=== PATIENT | female | born 1935 | race Caucasian/White ===

== ENCOUNTER 2016-03-23 15:02 | Emergency (ER) | payer MEDICARE ==
[~2016-03-23] VITALS: Ht 165.1 cm; Wt 75.0 kg
[2016-03-23 15:02] VITALS: BP 128/62; PULSE 87; RESP 16; TEMP 97.6; O2SAT 98
[~2016-03-23 15:02] MED LIST: 1-ME1LIQ PO; ACET325S8 PO; DONE10TA14 PO; FURO20 PO; HYDR-2768 PO; LORA0.5T PO; MELA3TAB19 PO; POTA-243 PO; RISP.25 PO; RISP0.5T2 PO; SERT-132 PO
--- NOTE | 2016-03-23 15:56 | PD ---
HPI Chief Complaint: Fall Time Seen by Provider: 15:56 Travel History International Travel<30 days: No Contact w/Intl Traveler<30days: No Traveled to known affect area: No History of Present Illness HPI 80-year-old [place] female with history of Alzheimer's, is brought in by ambulance status post fall. Initially the patient was complaining of right wrist and hip pain. It is reported that the patient hit her head and had no loss of consciousness. Patient came in on a board with cervical spine immobilization. Upon my exam the patient complains of no pain, no headache, no neck pain, no hip pain, or wrist or arm pain. The patient reportedly has a history of frequent falls. Patient has no known drug allergies. PFSH Past Medical History Anxiety: Yes Depression: Yes Cardiovascular Problems: Yes Dementia: Yes Hypertension: Yes Tetanus Vaccination: Unknown Social History Alcohol Use: No Tobacco Use: No Substance Use: No Allergies-Medications (Allergen,Severity, Reaction): Coded Allergies: No Known Allergies (Unverified , 02/20/15) Reported Meds & Prescriptions Reported Meds & Active Scripts Active Reported Donepezil 10 Mg Tab 10 Mg PO HS Melatonin 5 Mg Cap 5 Mg PO HS Risperidone 0.5 Mg Tab 0.5 Mg PO Q12HR Probiotic (Lactobacillus Acidophilus) 1 Cap Cap 2 Cap PO DAILY Lorazepam 0.5 Mg Tab 0.5 Mg PO BID PRN Sertraline (Sertraline HCl) 100 Mg Tab 150 Mg PO DAILY Lisinopril 5 Mg Tab 5 Mg PO DAILY Klor-Con 10 (Potassium Chloride) 10 Meq Tab 10 Meq PO DAILY Hydrochlorothiazide 12.5 Mg Cap 12.5 Mg PO DAILY Lasix (Furosemide) 20 Mg Tab 20 Mg PO DAILY Amlodipine (Amlodipine Besylate) 10 Mg Tab 10 Mg PO DAILY Review of Systems ROS Limitations: Poor Historian (patient has Alzheimer's.) Except as stated in HPI: all other systems reviewed are Neg General / Constitutional: No: Fever Eyes: No: Visual changes HENT: No: Headaches Cardiovascular: No: Chest Pain or Discomfort Respiratory: No: Shortness of Breath Gastrointestinal: No: Abdominal Pain Genitourinary: No: Dysuria Musculoskeletal: No: Pain Skin: No Rash Neurologic: No: Weakness Psychiatric: No: Depression Endocrine: No: Polydipsia Hematologic/Lymphatic: No: Easy Bruising Physical Exam Exam Limitations: Poor Historian Narrative GENERAL: Patient is pleasant and in no acute distress. SKIN: Warm and dry. Normal color. Normal turgor. No signs of trauma whatsoever. HEAD: Atraumatic. Normocephalic. EYES: Pupils equal and round. No scleral icterus. No injection or drainage. ENT: No nasal bleeding or discharge. Mucous membranes pink and moist. No dental injury. Pharynx is normal. Airway is patent. NECK: Trachea midline. No JVD. No bony tenderness or step-off. Patient has full range of motion without tenderness. Patient's C-spine is cleared for per nexus criteria. CARDIOVASCULAR: Regular rate and rhythm. No murmurs gallops or rubs appreciated. RESPIRATORY: No accessory muscle use. Clear to auscultation. Breath sounds equal bilaterally. GASTROINTESTINAL: Abdomen soft, non-tender, nondistended. Hepatic and splenic margins not palpable. MUSCULOSKELETAL: Extremities without clubbing, cyanosis, or edema. No obvious deformities. Patient has full movement of all extremities without increased pain or weakness. NEUROLOGICAL: Awake and alert. No obvious cranial nerve deficits. Motor grossly within normal limits. Five out of 5 muscle strength in the arms and legs. Normal speech. PSYCHIATRIC: Appropriate mood and affect; insight and judgment normal. Data Data Last Documented VS Vital Signs Date Time Temp Pulse Resp B/P Pulse Ox O2 Delivery O2 Flow Rate FiO2 03/23/16 16:52 97 Room Air 03/23/16 15:02 97.6 87 16 128/62 Orders Electrocardiogram (03/23/16 15:56) Ct Brain W/O Iv Contrast(Rout) (03/23/16 15:56) Ecg Monitoring (03/23/16 15:56) Oximetry (03/23/16 15:56) Sodium Chloride 0.9% Flush (Ns Flush) (03/23/16 16:00) [facility] Medical Decision Making Medical Screen Exam Complete: Yes Emergency Medical Condition: Yes Differential Diagnosis Possible syncope. Fall. Alzheimer's disease. Head injury. Possible stroke. Narrative Course Patient is felt to be medically stable at time of exam. EKG is ordered as well as CT scan of the head. Patient is placed on front desk associate. EKG is unremarkable for acute findings. CT scan is negative per radiologist. Patient is noted to be able to ambulate without difficulty here in the emergency department. Patient is felt stable to return to her nursing facility. Diagnosis Primary Impression: Fall Qualified Code: W19.XXXA - Fall, initial encounter Referrals: Primary Care Physician Patient Instructions: Fall Prevention for Older Adults (ED), General Instructions Additional Instructions: EKG is unremarkable for acute findings. CT scan is negative per radiologist. Patient is noted to be able to ambulate without difficulty here in the emergency department. Patient is felt stable to return to her nursing facility. Med/Other Pt SpecificInfo: No Change to Meds, No Meds Exist/No RX given Disposition: 01 DISCHARGE HOME Condition: Stable Bj Mauricio Mar 23, 2016 15:56
[2016-03-23] MEDS ORDERED: SODIUM CHLORIDE 0.9% FLUSH 5 ML FLUSH IVF PRN (16:00)
[2016-03-23] MEDS ORDERED: DONE10TA7 PO (16:05)
[2016-03-23] MEDS ORDERED: LACTCAP8 PO (16:05)
[2016-03-23] MEDS ORDERED: LORA-373 PO (16:05)
[2016-03-23] MEDS ORDERED: LISI-519 PO (16:05)
[2016-03-23] MEDS ORDERED: RISP0.5T2 PO (16:05)
[2016-03-23] MEDS ORDERED: MELA5CAP2 PO (16:05)
[2016-03-23] MEDS ORDERED: POTA-243 PO (16:05)
[2016-03-23] MEDS ORDERED: AMLO10TA2 PO (16:05)
[2016-03-23] MEDS ORDERED: HYDR12.57 PO (16:05)
[2016-03-23] MEDS ORDERED: SERT-129 PO (16:05)
[2016-03-23] MEDS ORDERED: FURO1TAB62 PO (16:05)
[2016-03-23 16:52] VITALS: O2SAT 97
--- NOTE | 2016-03-23 17:00 | RADRPT ---
EXAM DATE/TIME: 03/23/2016 16:27 [facility] COMPARISON: CT BRAIN W/O CONTRAST, January 04, 2016, 8:53. INDICATIONS : Dizziness. RADIATION DOSE: 56.35 CTDIvol (mGy) MEDICAL HISTORY : Stroke. Hypertension. Dementia. SURGICAL HISTORY : None. ENCOUNTER: Initial ACUITY: 1 day PAIN SCALE: Non-responsive LOCATION: cranial TECHNIQUE: Multiple contiguous axial images were obtained of the head. Using automated exposure control and adj ustment of the mA and/or kV according to patient size, radiation dose was kept as low as reasonably a chievable to obtain optimal diagnostic quality images. FINDINGS: Mild cerebral atrophy is noted. Mild periventricular and subcortical white matter small-vessel ische av changes are also noted. There is no acute infarct, acute hemorrhage, mass effect or extra-axial fluid collections. Nasal septal deviation to the right is noted. CONCLUSION: 1. Mild cerebral atrophy and periventricular/subcortical white matter small-vessel ischemic changes bilaterally. 2. No acute infarct, acute hemorrhage, mass effect or extra-axial fluid collections. 3. Nasal septal deviation to the right. Lj Barrett MD on March 23, 2016 at 16:52 Board Certified Radiologist. This report was verified electronically.
--- NOTE | 2016-03-23 21:30 | EKG ---
Date Performed: 03/23/2016 Time Performed: 16:04:14 PTAGE: 80 years EKG: Sinus rhythm LOW QRS VOLTAGE IN PRECORDIAL LEADS NONSPECIFIC T-WAVE ABNORMALITY ABNORMAL ECG NO PREVIOUS TRACING DOCTOR: Oleg Reeves Interpretating Date/Time 03/23/2016 21:28:24
== END 2016-03-23 23:39 | disposition home or self-care (01) ==
LOC: NEPE 15:02
DX: S09.90XA Unspecified injury of head, initial encounter (principal); M25.551 Pain in right hip; M25.531 Pain in right wrist; R94.31 Abnormal electrocardiogram [ECG] [EKG]; I10 Essential (primary) hypertension; G30.9 Alzheimer's disease, unspecified; F02.80 Dementia in other diseases classified elsewhere, unspecified severity, without behavioral disturbance, psychotic disturbance, mood disturbance, and anxiety
CPT/HCPCS: 70450; 93005

== ENCOUNTER 2016-03-28 19:37 | Emergency (ER) | payer MEDICARE ==
[~2016-03-28] VITALS: Ht 160 cm; Wt 81.8 kg
[~2016-03-28 19:37] MED LIST changes: -1-ME1LIQ PO; -ACET325S8 PO; +AMLO10TA2 PO; -DONE10TA14 PO; +DONE10TA7 PO; +FURO1TAB62 PO; -FURO20 PO; -HYDR-2768 PO; +HYDR12.57 PO; +LACTCAP8 PO; +LISI-519 PO; +LORA-373 PO; -LORA0.5T PO; -MELA3TAB19 PO; +MELA5CAP2 PO; -RISP.25 PO; +SERT-129 PO; -SERT-132 PO
[2016-03-28 19:45] VITALS: BP 147/72; PULSE 75; RESP 16; TEMP 97.9; O2SAT 97
[2016-03-28] MEDS ORDERED: ACETAMINOPHEN 325 MG TAB PO ONE (20:00)
[2016-03-28 20:27] LABS: BASOPHIL # 0.1 TH/MM3 (0-0.2); BASOPHIL % 0.8 % (0.0-2.0); EOSINOPHIL # 0.2 TH/MM3 (0-0.4); EOSINOPHIL % 2.9 % (0.0-4.0); HEMATOCRIT 37.2 % (35.0-46.0); HEMO FLAGS DIFF FINAL; LYMPH % 20.9 % (9.0-44.0); LYMPHOCYTE # 1.6 TH/MM3 (1.0-4.8); MEAN CELL VOLUME 89.2 FL (80.0-100.0); MEAN CORPUSCULAR HEMOGLOBIN 29.9 PG (27.0-34.0); MEAN CORPUSCULAR HGB CONC 33.5 % (32.0-36.0); MONO % 9.1 % (0.0-8.0); NEUT % 66.3 % (16.0-70.0); PLATELET COUNT 203 TH/MM3 (150-450); RED BLOOD COUNT 4.18 MIL/MM3 (4.00-5.30); RED CELL DISTRIBUTION WIDTH 15.6 % (11.6-17.2); WHITE BLOOD COUNT 7.5 TH/MM3 (4.0-11.0)
--- NOTE | 2016-03-28 20:44 | RADRPT ---
EXAM DATE/TIME: 03/28/2016 20:18 [facility] COMPARISON: CT BRAIN W/O CONTRAST, March 23, 2016, 16:27. INDICATIONS : Trauma; fall. RADIATION DOSE: 41.08 CTDIvol (mGy) MEDICAL HISTORY : Dementia. Cerebrovascular disease. Cardiovascular diseaseHypertension SURGICAL HISTORY : None. ENCOUNTER: Initial ACUITY: 1 day PAIN SCALE: Non-responsive LOCATION: cranial TECHNIQUE: Multiple contiguous axial images were obtained of the head. Using automated exposure control and adj ustment of the mA and/or kV according to patient size, radiation dose was kept as low as reasonably a chievable to obtain optimal diagnostic quality images. FINDINGS: CEREBRUM: The ventricles and cortical sulci are mildly widened. No evidence of midline shift, mass lesion, hem orrhage or acute infarction. No extra-axial fluid collections are seen. POSTERIOR FOSSA: The cerebellum and brainstem are intact. The 4th ventricle is midline. The cerebellopontine angle i s unremarkable. EXTRACRANIAL: The visualized portion of the orbits is intact. There is left frontal scalp soft tissue swelling. SKULL: The calvaria is intact. No evidence of skull fracture. CONCLUSION: 1. No acute intracranial abnormality. 2. Age related atrophy. 3. Left frontal scalp swelling. Atif Santos MD on March 28, 2016 at 20:40 Board Certified Radiologist. This report was verified electronically.
--- NOTE | 2016-03-28 20:59 | RADRPT ---
EXAM DATE/TIME: 03/28/2016 20:12 [facility] COMPARISON: No previous studies available for comparison. INDICATIONS : Right shoulder pain post fall. MEDICAL HISTORY : None. SURGICAL HISTORY : None. ENCOUNTER: Initial ACUITY: 1 day PAIN SCORE: 7/10 LOCATION: Right shoulder FINDINGS: No fracture is seen. The glenohumeral joint and acromioclavicular joint are normally aligned. There is hypertrophic change at the inferior medial aspect of the humeral head consistent with degenerativ e change at the glenohumeral joint. CONCLUSION: No acute abnormality is seen. There is degenerative spurring at the inferior medial h umeral head. Atif Santos MD on March 28, 2016 at 20:40 Board Certified Radiologist. This report was verified electronically.
--- NOTE | 2016-03-28 21:06 | RADRPT ---
EXAM DATE/TIME: 03/28/2016 20:18 [facility] COMPARISON: CT CERVICAL SPINE W/O CONTRAST, January 04, 2016, 8:53. INDICATIONS : Trauma; fall. RADIATION DOSE: 19.64 CTDIvol (mGy) MEDICAL HISTORY : Dementia. Cerebrovascular disease. Cardiovascular diseaseHypertension SURGICAL HISTORY : None. ENCOUNTER: Initial ACUITY: 1 day PAIN SCALE: Non-responsive LOCATION: neck TECHNIQUE: Volumetric scanning of the cervical spine was performed. Multiplanar reconstructions i n the sagittal, coronal and oblique axial planes were performed. Using automated exposure control a nd adjustment of the mA and/or kV according to patient size, radiation dose was kept as low as reason ably achievable to obtain optimal diagnostic quality images. FINDINGS: VERTEBRAE: Normal vertebral body height. ALIGNMENT: There is some mild reversal of the normal C-spine lordosis. This alignment abnormalit y was present on the prior exam and is unchanged. C1-C2: The C1 ring is intact. There is some hypertrophic change at the articulation between the lat eral masses of C1 and C2. C2-C3: The disc spaces are grossly intact. There is no spinal stenosis. There is facet hypertrophy being worse on the right. The neural foramina are normal. C3-C4: Disc space is narrowed. There is posterior osteophytic ridging causing a mild impression on t he thecal sac. There is uncovertebral and mild facet hypertrophy. The neural foramina are grossly no rmal. C4-C5: Disc space is narrowed. There is mild posterior osteophytic ridging. There is uncovertebral hypertrophy. There is mild facet hypertrophy. The neural foramina are grossly normal. C5-C6: Disc space is narrowed. There is mild osteophytic ridging. Significant stenosis is not appre ciated. There is uncovertebral hypertrophy being worse on the left. This causes a mild impression on the left neural foramina. The facet joints are grossly intact. C6-C7: Disc space is narrowed. There is mild posterior osteophytic ridging. There is uncovertebral hypertrophy being worse on the left. The neural foramina are grossly normal. The facet joints are g rossly intact. C7-T1: The bony spinal canal is normal in size. No evidence of disc bulge or herniation. The neura l foramina are bilaterally patent. CONCLUSION: No acute bony abnormality is seen. There is chronic degenerative change as described above. Atif Santos MD on March 28, 2016 at 20:44 Board Certified Radiologist. This report was verified electronically.
[2016-03-28 21:19] LABS: ALKALINE PHOSPHATASE 84 U/L (45-117); ALT (GPT) 18 U/L (10-53); ANION GAP 9 MEQ/L (5-15); AST (GOT) 19 U/L (15-37); BICARBONATE 30.3 MEQ/L (21.0-32.0); BLOOD UREA NITROGEN 19 MG/DL (7-18); CHLORIDE 101 MEQ/L (98-107); GLOMERULAR FILTRATION RATE 51 ML/MIN (>89); SODIUM (NA) 140 MEQ/L (136-145); TOTAL BILIRUBIN ADULT 0.4 MG/DL (0.2-1.0)
[2016-03-28 21:30] LABS: POTASSIUM 2.9 MEQ/L (3.5-5.1)
[2016-03-28 21:54] VITALS: BP 120/59; PULSE 65; RESP 14; O2SAT 98
[2016-03-28] MEDS ORDERED: POTASSIUM CHLORIDE 20 MEQ PWD PACKET PO ONE (23:15)
--- NOTE | 2016-03-28 23:54 | RADRPT ---
EXAM DATE/TIME: 03/28/2016 23:29 [facility] COMPARISON: No previous studies available for comparison. INDICATIONS : Fall. MEDICAL HISTORY : None. SURGICAL HISTORY : None. ENCOUNTER: Initial ACUITY: 1 day PAIN SCORE: 0/10 LOCATION: Bilateral pelvis FINDINGS: A single frontal view of the pelvis demonstrates no evidence of fracture. The bony pelvic ring is in tact. Bony mineralization is normal. The soft tissues are intact. Degenerative changes present at t he lumbosacral junction. CONCLUSION: 1. There is no evidence of acute fracture. Elder Mcclendon MD on March 28, 2016 at 23:52 Board Certified Radiologist. This report was verified electronically.
--- NOTE | 2016-03-29 00:38 | PD ---
HPI Chief Complaint: Fall Time Seen by Provider: 19:52 Travel History International Travel<30 days: No Contact w/Intl Traveler<30days: No Traveled to known affect area: No History of Present Illness HPI Patient is an 80-year-old female who is brought in by EMS [facility]. She has large hematoma to the left side of her head. Per EMS, staff heard her fall and went to her immediately, they said she was fully awake and alert. It does not appear that she passed out. She complains of pain to her right shoulder. She has otherwise been feeling normally. She has dementia and is a poor historian. PFSH Past Medical History Anxiety: Yes Depression: Yes Cardiovascular Problems: Yes High Cholesterol: Yes Dementia: Yes Hypertension: Yes Medical other: Yes (dementia, BLE Lymphedema) Tetanus Vaccination: Unknown ?: Not Social History Alcohol Use: No Tobacco Use: No Substance Use: No Allergies-Medications (Allergen,Severity, Reaction): Coded Allergies: No Known Allergies (Unverified , 02/20/15) Reported Meds & Prescriptions Reported Meds & Active Scripts Active Reported Donepezil 10 Mg Tab 10 Mg PO HS Melatonin 5 Mg Cap 5 Mg PO HS Risperidone 0.5 Mg Tab 0.5 Mg PO Q12HR Probiotic (Lactobacillus Acidophilus) 1 Cap Cap 2 Cap PO DAILY Lorazepam 0.5 Mg Tab 0.5 Mg PO BID PRN Sertraline (Sertraline HCl) 100 Mg Tab 150 Mg PO DAILY Lisinopril 5 Mg Tab 5 Mg PO DAILY Klor-Con 10 (Potassium Chloride) 10 Meq Tab 10 Meq PO DAILY Hydrochlorothiazide 12.5 Mg Cap 12.5 Mg PO DAILY Lasix (Furosemide) 20 Mg Tab 20 Mg PO DAILY Amlodipine (Amlodipine Besylate) 10 Mg Tab 10 Mg PO DAILY Review of Systems ROS Limitations: Clinical Condition, Poor Historian General / Constitutional: No: Fever, Chills HENT: Positive: Headaches Cardiovascular: No: Chest Pain or Discomfort Respiratory: No: Shortness of Breath Gastrointestinal: No: Nausea, Vomiting Musculoskeletal: Positive: Arthralgias Skin: No Change in Pigmentation Neurologic: No: Syncope Physical Exam Narrative GENERAL: Awake and alert, in no acute distress. SKIN: Warm and dry. Large hematoma to the left side of forehead. HEAD: Atraumatic. Normocephalic. EYES: Pupils equal and round. No scleral icterus. ENT: Mucous membranes pink and moist. NECK: Trachea midline. No JVD. No cervical spine tenderness. CARDIOVASCULAR: Regular rate and rhythm. No murmur appreciated. RESPIRATORY: No accessory muscle use. Clear to auscultation. Breath sounds equal bilaterally. GASTROINTESTINAL: Abdomen soft, non-tender, nondistended. MUSCULOSKELETAL: No obvious deformities. No clubbing. No cyanosis. No edema. Mild tenderness to palpation of the right shoulder. She is able to range the shoulder fully. Tenderness to palpation of the left hip. NEUROLOGICAL: Awake and alert. No obvious cranial nerve deficits. Motor grossly within normal limits. Normal speech. PSYCHIATRIC: Appropriate mood and affect; insight and judgment normal. Data Data Last Documented VS Vital Signs Date Time Temp Pulse Resp B/P Pulse Ox O2 Delivery O2 Flow Rate FiO2 03/29/16 06:00 67 14 136/60 96 Room Air 03/28/16 19:[address] Brain W/O Iv Contrast(Rout) (03/28/16 ) Ct Cerv Spine W/O Contrast (03/28/16 ) Complete Blood Count With Diff (03/28/16 19:52) Comprehensive Metabolic Panel (03/28/16 19:52) Troponin I (03/28/16 19:52) Electrocardiogram (03/28/16 ) Shoulder, Complete (>2vws) (03/28/16 ) Acetaminophen (Tylenol) (03/28/16 20:00) Potassium Chloride Powder (Kcl Powder) (03/28/16 23:15) Pelvis, Ap Only (Routine) (03/28/16 ) Labs Laboratory Tests Test 03/28/16 20:00 White Blood Count 7.5 TH/MM3 Red Blood Count 4.18 MIL/MM3 Hemoglobin 12.5 GM/DL Hematocrit 37.2 % Mean Corpuscular Volume 89.2 FL Mean Corpuscular Hemoglobin 29.9 PG Mean Corpuscular Hemoglobin 33.5 % Concent Red Cell Distribution Width 15.6 % Platelet Count 203 TH/MM3 Mean Platelet Volume 8.5 FL Neutrophils (%) (Auto) 66.3 % Lymphocytes (%) (Auto) 20.9 % Monocytes (%) (Auto) 9.1 % Eosinophils (%) (Auto) 2.9 % Basophils (%) (Auto) 0.8 % Neutrophils # (Auto) 5.0 TH/MM3 Lymphocytes # (Auto) 1.6 TH/MM3 Monocytes # (Auto) 0.7 TH/MM3 Eosinophils # (Auto) 0.2 TH/MM3 Basophils # (Auto) 0.1 TH/MM3 CBC Comment DIFF FINAL Differential Comment Sodium Level 140 MEQ/L Potassium Level 2.9 MEQ/L Chloride Level 101 MEQ/L Carbon Dioxide Level 30.3 MEQ/L Anion Gap 9 MEQ/L Blood Urea Nitrogen 19 MG/DL Creatinine 1.03 MG/DL Estimat Glomerular Filtration 51 ML/MIN Rate Random Glucose 99 MG/DL Calcium Level 8.9 MG/DL Total Bilirubin 0.4 MG/DL Aspartate Amino Transf 19 U/L (AST/SGOT) Alanine Aminotransferase 18 U/L (ALT/SGPT) Alkaline Phosphatase 84 U/L Troponin I LESS THAN 0.02 NG/ML Total Protein 7.5 GM/DL Albumin 3.9 GM/DL [facility] Medical Decision Making Medical Screen Exam Complete: Yes Emergency Medical Condition: Yes Medical Record Reviewed: Yes Interpretation(s) ECG shows sinus rhythm at 67, no ST elevation or depression, normal intervals. Differential Diagnosis Call versus ICH versus concussion versus shoulder fracture versus hip fracture Narrative Course Patient is an 80-year-old female who comes in after a fall. Exam shows large hematoma to the left side of the head. There is tenderness to palpation of the right shoulder and left hip. IV established and labs sent. Labs show a potassium of 2.9, this was replaced. ECG performed shows no signs of ischemia or arrhythmia. CT head and cervical spine performed show no acute abnormalities. X-ray of the right hip and the left shoulder show no acute abnormalities. Patient given Tylenol. [facility] Diagnosis Primary Impression: Fall Qualified Code: W19.XXXA - Fall, initial encounter Patient Instructions: Fall Prevention (ED), General Instructions Additional Instructions: Follow up with your primary care doctor. Return to the ED as needed for any worsening symptoms. Take Tylenol as needed for pain. Disposition: DISCHARGE HOME Condition: Stable Silke Maddox MD Mar 29, 2016 00:38
[2016-03-29 01:15] VITALS: BP 115/69; PULSE 70; RESP 14; O2SAT 96
[2016-03-29 06:00] VITALS: BP 136/60; PULSE 67; RESP 14; O2SAT 96
--- NOTE | 2016-03-29 14:18 | EKG ---
Date Performed: 03/28/2016 Time Performed: 21:07:30 PTAGE: 80 years EKG: Sinus rhythm LOW QRS VOLTAGE IN PRECORDIAL LEADS BORDERLINE ECG Compared to prior tracing no significant change PREVIOUS TRACING : 03/23/2016 16.04 DOCTOR: Jacob Shelton Interpretating Date/Time 03/29/2016 14:12:51
== END 2016-03-29 06:53 | disposition home or self-care (01) ==
LOC: NEPE 19:37 → NEPA 03-29 06:53
DX: S00.03XA Contusion of scalp, initial encounter (principal); R94.31 Abnormal electrocardiogram [ECG] [EKG]; W19.XXXA Unspecified fall, initial encounter; Y92.129 Unspecified place in nursing home as the place of occurrence of the external cause; F03.90 Unspecified dementia, unspecified severity, without behavioral disturbance, psychotic disturbance, mood disturbance, and anxiety; I10 Essential (primary) hypertension
CPT/HCPCS: 70450; 72125; 72170; 73030; 80053; 84484; 85025; 93005

== ENCOUNTER 2016-06-21 10:45 | Emergency (ER) | payer MEDICARE ==
[~2016-06-21] VITALS: Ht 165.1 cm; Wt 80.0 kg
[2016-06-21 10:57] VITALS: BP 145/65; PULSE 64; RESP 16; TEMP 98; O2SAT 96
--- NOTE | 2016-06-21 11:16 | PD ---
HPI Chief Complaint: Fall Time Seen by Provider: 11:12 Travel History International Travel<30 days: No Contact w/Intl Traveler<30days: No Traveled to known affect area: No History of Present Illness HPI Patient comes to emergency Department via EMS from an LONG [facility] for evaluation after a witnessed fall. Reported patient is supposed to walk with a walker however she got up and started walking without it lost her balance fell hitting her head on the wall. There was no reported loss of consciousness. Patient denies any pain anywhere. Patient has a history of dementia and is a poor historian thus limiting H&P. 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 Please note H&P was obtained the assistance of hospital interpreting service Aditya as patient is primary Slovenian-speaking. PFSH Past Medical History Anxiety: Yes Depression: Yes Cardiovascular Problems: Yes High Cholesterol: Yes Dementia: Yes Hypertension: Yes ?: Not Social History Alcohol Use: No Tobacco Use: No Substance Use: No Allergies-Medications (Allergen,Severity, Reaction): Coded Allergies: No Known Allergies (Unverified , 06/21/16) Reported Meds & Prescriptions Reported Meds & Active Scripts Active Reported Donepezil 10 Mg Tab 10 Mg PO HS Donepezil 10 Mg Tab 10 Mg PO HS Melatonin 5 Mg Cap 5 Mg PO HS Lorazepam 0.5 Mg Tab 0.5 Mg PO BID PRN Sertraline (Sertraline HCl) 100 Mg Tab 150 Mg PO DAILY Klor-Con 10 (Potassium Chloride) 10 Meq Tab 20 Meq PO BID Lasix (Furosemide) 20 Mg Tab 20 Mg PO DAILY Amlodipine (Amlodipine Besylate) 10 Mg Tab 10 Mg PO DAILY Review of Systems Except as stated in HPI: all other systems reviewed are Neg Physical Exam Narrative GENERAL: Well-developed, overly nourished, in no acute distress, and non-ill appearing. SKIN: Focused skin assessment warm and dry. HEAD: Atraumatic. Normocephalic. EYES: Pupils equal and round. EOMI. No scleral icterus. No injection or drainage. ENT: No nasal bleeding or discharge. Mucous membranes pink and moist. NECK: Trachea midline. C-collar in place. CARDIOVASCULAR: Regular rate and rhythm. No murmur appreciated. Radial pulses and dorsal pulses 2+, intact, and equal bilaterally. RESPIRATORY: No accessory muscle use. No respiratory distress. Clear to auscultation. Breath sounds equal bilaterally. GASTROINTESTINAL: Abdomen soft, non-tender, nondistended. Hepatic and splenic margins not palpable. No pulsatile mass. MUSCULOSKELETAL: No obvious deformities. No clubbing. No cyanosis. No edema. Full range of motion and is moving all 4 extremities. Pelvic stable. Shoulder: FROM equal BL with passive flexion, extension, Abduction, Adduction, internal/ external rotation, and pronation/supination. Sensation equal BL deltoid muscles. Pulses equal BL distal to injury. Capillary refill less than 2 seconds distal to injury and equal BL. FROM distal to injury and equal BL. Strength distal to injury equal BL. NV intact distal to injury equal BL. Flexion and extension of thumb equal BL. Equal strength and movement with abduction/adductions of BL fingers. Synthetic Cloth Binding Cutter strength equal BL. Hip: FROM and equal BL with passive flexion, extension, Abduction, Adduction, and internal/ external rotation. Pulses equal BL distal to injury. Capillary refill less than 2 seconds distal to injury and equal BL. FROM distal to injury and equal BL. Strength distal to injury equal BL. NV intact distal to injury and equal BL. Plantar flexion and dorsal flexion equal BL. Dorsal pulses equal BL. Sensation equal BL 1st web space. NEUROLOGICAL: Awake and alert. No obvious cranial nerve deficits. Motor grossly within normal limits. Normal speech. PSYCHIATRIC: Appropriate mood and affect; insight and judgment normal. Data Data Last Documented VS Vital Signs Date Time Temp Pulse Resp B/P Pulse Ox O2 Delivery O2 Flow Rate FiO2 06/21/16 13:01 65 17 138/80 96 06/21/16 11:09 Room Air 06/21/16 10:[address] Brain W/O Iv Contrast(Rout) (06/21/16 ) Ct Cerv Spine W/O Contrast (06/21/16 ) [facility] Medical Decision Making Medical Screen Exam Complete: Yes Emergency Medical Condition: Yes Differential Diagnosis Fall, head injury, strain, fracture, intracranial hemorrhage, other Narrative Course Patient presents with closed head injury. There was no evidence of cranial or intracranial injury noted on CT of the head and no evidence of fracture or injury to cervical spine on C-spine CT. The patient has been behaving normally and no notable altered mental status from her reported baseline. Felipe score of 15. The neurologic exam is normal. The patient is awake and aware and motor sensory exams are normal. There is no clinical evidence to support intracranial injury or bleed. Patient in no obvious distress upon re-evaluation. All pertinent Radiology result(s) discussed with patient. I discussed patient with Dr. Olson prior to discharge, who is in agreement with plan of care and disposition. Any questions/concerns in reference to patient diagnosis/condition discussed and clarified prior to patient's discharge. Reinforced sheer importance of close follow up with patient's primary physician or primary care clinic. Instructed patient to return to ED immediately, if symptoms return/worsen. Further instructions and recommendations were detailed in discharge paperwork. Pt left without difficulty out of ED at discharge. Diagnosis Primary Impression: Closed head injury Qualified Code: S09.90XA - Closed head injury, initial encounter Additional Impression: Fall Qualified Code: W19.XXXA - Fall, initial encounter Patient Instructions: Fall Prevention for Children (GEN), General Instructions , Head Injury (ED) Additional Instructions: Follow-up with your primary care physician in 2-3 days for reevaluation. Walk using your walker. Return to the emergency department if symptoms get worse. Disposition: 01 DISCHARGE HOME Condition: Stable Oscar Cutler Jun 21, 2016 11:16
--- NOTE | 2016-06-21 11:57 | RADRPT ---
EXAM DATE/TIME: 06/21/2016 11:38 [facility] COMPARISON: CT BRAIN W/O CONTRAST, March 28, 2016, 20:18. INDICATIONS : Fall; head and neck pain. RADIATION DOSE: 56.35 CTDIvol (mGy) MEDICAL HISTORY : Dementia. Stroke Cardiovascular diseaseHypertension. SURGICAL HISTORY : None. ENCOUNTER: Initial ACUITY: 1 day PAIN SCALE: 3/10 LOCATION: Bilateral cranial TECHNIQUE: Multiple contiguous axial images were obtained of the head. Using automated exposure control and adj ustment of the mA and/or kV according to patient size, radiation dose was kept as low as reasonably a chievable to obtain optimal diagnostic quality images. FINDINGS: CEREBRUM: The ventricles are normal for age. No evidence of midline shift, mass lesion, hemorrhage or acute in farction. No extra-axial fluid collections are seen. POSTERIOR FOSSA: The cerebellum and brainstem are intact. The 4th ventricle is midline. The cerebellopontine angle i s unremarkable. EXTRACRANIAL: The visualized portion of the orbits is intact. SKULL: The calvaria is intact. No evidence of skull fracture. CONCLUSION: Normal examination for a patient of this age. Marion Dozier MD on June 21, 2016 at 11:55 Board Certified Radiologist. This report was verified electronically.
[2016-06-21] MEDS ORDERED: DONE10TA7 PO (12:11)
--- NOTE | 2016-06-21 12:15 | RADRPT ---
EXAM DATE/TIME: 06/21/2016 11:38 [facility] COMPARISON: CT CERVICAL SPINE W/O CONTRAST, March 28, 2016, 20:18. INDICATIONS : Fall; head and neck pain. RADIATION DOSE: 38.12 CTDIvol (mGy) MEDICAL HISTORY : Dementia. Stroke Cardiovascular diseaseHyertension. SURGICAL HISTORY : None. ENCOUNTER: Initial ACUITY: 1 day PAIN SCALE: 4/10 LOCATION: Bilateral neck TECHNIQUE: Volumetric scanning of the cervical spine was performed. Multiplanar reconstructions i n the sagittal, coronal and oblique axial planes were performed. Using automated exposure control a nd adjustment of the mA and/or kV according to patient size, radiation dose was kept as low as reason ably achievable to obtain optimal diagnostic quality images. FINDINGS: VERTEBRAE: Normal vertebral body height. No evidence of fracture or dislocation. ALIGNMENT: No evidence of subluxation. There is loss of the normal cervical lordosis with slight kyphosis centered about the C4/C5 level, unchanged from prior exam. C2-C3: The bony spinal canal is normal in size. No evidence of disc bulge or herniation. The neura l foramina are bilaterally patent. Facet hypertrophy, right greater than left. C3-C4: Disc space narrowing with posterior osteophyte causing mild impression upon the adjacent theca l sac. Uncovertebral joint and mild facet hypertrophy. The neural foramina are patent.. C4-C5: Disc desiccation and disc space narrowing. Posterior disc osteophyte complex minimally narrows the adjacent thecal sac. Uncovertebral joint spurring and facet hypertrophy. The neural foramina are patent. C5-C6: Disc desiccation and disc space narrowing. Small broad-based posterior disc osteophyte complex minimally effaces the adjacent thecal sac and contributes to mild neural foraminal narrowing. C6-C7: Disc desiccation disc space narrowing with a broad-based posterior disc osteophyte complex whi ch mildly effaces the adjacent thecal sac and contributes to left greater than right neural foraminal narrowing.. C7-T1: The bony spinal canal is normal in size. No evidence of disc bulge or herniation. The neura l foramina are bilaterally patent. CONCLUSION: No evidence of fracture or dislocation. Stable multilevel degenerative changes as not ed above. Marion Dozier MD on June 21, 2016 at 12:08 Board Certified Radiologist. This report was verified electronically.
[2016-06-21 13:01] VITALS: BP 138/80
== END 2016-06-21 13:38 | disposition home or self-care (01) ==
LOC: NEPE 10:45
DX: S09.90XA Unspecified injury of head, initial encounter (principal); W19.XXXA Unspecified fall, initial encounter; Y93.01 Activity, walking, marching and hiking; Y92.199 Unspecified place in other specified residential institution as the place of occurrence of the external cause
CPT/HCPCS: 70450; 72125